=== PATIENT | male | born 1970 | race Caucasian/White ===

== ENCOUNTER 2018-11-04 09:16 | Inpatient (IN) | payer OTHER ==
[2018-10-27 16:11] LABS: BASOPHILS % (AUTO) 0.5 % (0-1); EOSINOPHILS # (AUTO) 0.2 X10'3 (0-0.9); EOSINOPHILS % (AUTO) 2.6 % (0-6); LYMPHOCYTES # (AUTO) 1.6 X10'3 (1.1-4.8); LYMPHOCYTES % (AUTO) 27.5 % (21-51); MEAN CORPUSCULAR HEMOGLOBIN 30.5 PG (27.0-31.0); MEAN CORPUSCULAR HGB CONC 34.1 % (33.0-36.5); MEAN CORPUSCULAR VOLUME 89.5 FL (78-98); MEAN PLATELET VOLUME 8.4 FL (7.4-10.4); MONOCYTES # (AUTO) 0.7 X10'3 (0-0.9); MONOCYTES % (AUTO) 11.2 % (2-12); NEUTROPHILS # (AUTO) 3.4 X10'3 (1.8-7.7); NEUTROPHILS % (AUTO) 58.2 % (42-75); PRE OP HEMATOCRIT 46.4 % (42.0-52.0); PRE OP HEMOGLOBIN 15.8 g/dL (14.0-17.9); PRE OP PLATELET COUNT 155 X10'3 (140-440); RED BLOOD COUNT 5.18 X10'6 (4.70-6.10); RED CELL DISTRIBUTION WIDTH 13.6 % (11.5-14.5)
[2018-10-27 16:24] LABS: ALBUMIN 3.9 G/DL (3.4-5.0); ALKALINE PHOSPHATASE 72 IU/L (46-116); BLOOD UREA NITROGEN 8 MG/DL (7-18); BUN/CREATININE RATIO 8.1 (5.4-32.0); CALCIUM 9.1 MG/DL (8.5-10.1); CHLORIDE 103 MMOL/L (99-107); CREATININE 0.99 MG/DL (0.60-1.10); PRE OP ALT 30 U/L (30-65); PRE OP ANION GAP 8 (8-16); PRE OP AST 19 U/L (10-37); PRE OP BILIRUB, TOTAL 0.5 MG/DL (0.0-1.0); PRE OP GLUCOSE 88 MG/DL (70-104); PRE OP SODIUM 142 MMOL/L (135-145); TOTAL PROTEIN 7.7 G/DL (6.4-8.2); eGFR 80 ML/MIN
[~2018-11-04] VITALS: Ht 172.7 cm; Wt 76.4 kg
[2018-11-04] VITALS (17 sets, daily range): BP systolic 89–140; BP diastolic 52–94
[~2018-11-04 09:16] MED LIST: MELA3TAB PO; acetaminophen 325mg tablet PO ONE; cefazolin/dext.iso 2gm/100 ML IV ONE; famotidine 20mg tablet PO ONE; gabapentin 300mg capsule PO ONE; metoclopramide 5 mg/ml inj IV ONE; oxyCODONE SR 10mg (sust. release) tab -2 tabs (20mg) PO ONE; ringers solution, lacted 1,000 ML IV SCH; tranexamic acid inj. 1,000 MG in normal saline 100 ML IV ONE; vancomycin inj 1,500 MG in normal saline 300ml IV soln IV ONE
[2018-11-04] MEDS ORDERED: ringers solution, lacted 1,000 ML IV SCH (09:38)
[2018-11-04] MEDS ORDERED: ondansetron/PF 4mg/2ml inj IV PRN ×2 (09:40→15:20)
[2018-11-04] MEDS ORDERED: meperidine/PF 25mg/ml syringe IV PRN ×3 (09:40)
[2018-11-04] MEDS ORDERED: morphine 4 MG/ML inj SYRINge IV PRN ×2 (09:40)
[2018-11-04] MEDS ORDERED: proCHLORperazine 10 MG/2 ml inj IV PRN (09:40)
[2018-11-04] MEDS ORDERED: vancomycin 1,000mg inj ONE (12:09)
[2018-11-04] MEDS ORDERED: ketorolac trometh. 30mg/ml inj. ONE (12:09)
[2018-11-04] MEDS ORDERED: morphine 10mg/ml inj. ONE (12:09)
[2018-11-04] MEDS ORDERED: epiNEPHrine 1 mg/ml inj ONE (12:09)
[2018-11-04] MEDS ORDERED: ROPIVAcaine 0.5% (5mg/ml) 30ml vial ONE ×2 (12:10→15:00)
[2018-11-04] MEDS ORDERED: ceFAZolin 1000mg inj ONE (12:10)
--- NOTE | 2018-11-04 12:15 | NUR ---
PT C/O ITCHING, AND L ARM ABOVE IV REDDENED. KATELINO TURNED OFF. Addendum: 11/04/18 at 1307 by Ashley Todd RN Amended: Links added.
[2018-11-04] MEDS ORDERED: MIDAZolam 1mg/ml 10ml vial ONE (12:21)
[2018-11-04] MEDS ORDERED: fentaNYL/PF 50MCG/1 ML 2ML syringe ONE (12:21)
[2018-11-04] MEDS ORDERED: tetracaine 1% (10mg/ml) pres. free inj. ONE (12:23)
[2018-11-04] MEDS ORDERED: diphenhydrAMINE 50 mg/ml inj ONE (12:29)
[2018-11-04] MEDS ORDERED: HYDROmorphone inj. 0.5 MG/0.5 ML DISP.SYRIN IV PRN (15:20)
[2018-11-04] MEDS ORDERED: HYDROmorphone 1 mg/ml syringe IV PRN (15:20)
[2018-11-04] MEDS ORDERED: acetaminophen 325mg tablet PO PRN (15:20)
[2018-11-04] MEDS ORDERED: oxyCODONE IR 5mg (immed. release) tablet PO PRN ×2 (15:20)
[2018-11-04] MEDS ORDERED: bisacodyl 10mg suppository rectal RC PRN (15:20)
[2018-11-04] MEDS ORDERED: magnesium hydroxide 30ml (MOM) UD suspension PO PRN (15:20)
[2018-11-04] MEDS ORDERED: diphenhydrAMINE 25mg capsule PO PRN ×2 (15:20)
--- NOTE | 2018-11-04 15:57 | NUR ---
Received from OR via ORTHO BED WITH JIGAR , accompanied by Anesthesiologist AZALIA and report given by Anesthesiolgist. PATIENT WITH 18G PIV IN LEFT UE RUNNING LR AT 100. DENIES PAIN AT THIS TIME. SPINAL LEVEL AT T10 AT THIS TIME. + DORSALIS PEDIS TO LEFT FOOT. LEFT KNEE WRAP, POWDER PACK, OMAIRA DRAIN PRESENT. ON Q DONNED UPON ARRRIVAL. BARROW CATHETER PRESENT WITH YIN URINE IN CATHETER ATRIUM. SCDS DONEED WAS LUNA DIEZ FOR TEMP OF 35'9C. STEFANIA BRACE DONNED BY [employer] DON IN RR. Addendum: 11/04/18 at 1611 by Gael Castillo RN, RN Amended: Links added.
[2018-11-04] MEDS: ROPIVAcaine 0.2%/PF PAIN PUMP 550 ML IJ SCH (16:12)
--- NOTE | 2018-11-04 16:44 | NUR ---
Patient in room PAS IN 900. I have received report from Gael HACKETT and had the opportunity to ask questions and assume patient care.
--- NOTE | 2018-11-04 17:07 | NUR ---
Report called to receiving nurse. Transferred via ORTHO BED WITH OHFT AND 3 BAGS OF Belongings with a labeled fww. Special Issues communicated to receiving nurse JERONIMO HACKETT.VSS. BED LOW. CALL LIGHT IN HAND AND RN PRESENT IN ROOM TO ACCEPT CARE. DENIES PAIN. CLEAR YELLOW URINE IN CATHETER AT THIS TIME. PATIENT CARE TURNED OVER. Addendum: 11/04/18 at 1723 by Gael Castillo RN RN Amended: Links added.
--- NOTE | 2018-11-04 18:28 | NUR ---
Problems reprioritized. Patient report given, questions answered & plan of care reviewed with Krystle HACKETT.
[2018-11-04] MEDS ORDERED: NORMAL SALINE IV ONE (19:00)
[2018-11-04] MEDS ORDERED: TRANEXAMIC ACID IV ONE (19:00)
[2018-11-04] MEDS: ceFAZolin 1GM/D5W- ADD-VANTAGE 50 ML IV SCH (19:01)
[2018-11-04] MEDS ORDERED: vancomycin/NS 1 GM ADD-VANTAGE 250 ML IV SCH (20:00)
[2018-11-04] MEDS: gabapentin 300mg capsule PO SCH (21:33)
[2018-11-04] MEDS: acetaminophen 325mg tablet PO SCH (21:33)
[2018-11-04] MEDS: sennosides 8.6mg tablet PO SCH (21:34)
[2018-11-04] MEDS: potassium cl 20mEq in 1/2 NS 1,000 ML IV SCH ×2 (22:00→23:19)
[2018-11-05] VITALS (8 sets, daily range): BP systolic 104–140; BP diastolic 62–83
[2018-11-05] MEDS: ceFAZolin 1GM/D5W- ADD-VANTAGE 50 ML IV SCH (02:07)
[2018-11-05] MEDS: acetaminophen 325mg tablet PO SCH ×4 (02:07→19:30)
--- NOTE | 2018-11-05 06:00 | NUR ---
Patient in room ORTHO 4018. I have received report from Krystle HACKETT and had the opportunity to ask questions and assume patient care.
[2018-11-05 06:40] LABS: BASOPHILS % (AUTO) 0 % (0-1); EOSINOPHILS % (AUTO) 0 % (0-6); HEMATOCRIT 35.7 % (42.0-52.0); HEMOGLOBIN 12.1 g/dl (14.0-17.9); LYMPHOCYTES # (AUTO) 0.6 X10'3 (1.1-4.8); MEAN CORPUSCULAR HEMOGLOBIN 30.5 PG (27.0-31.0); MEAN CORPUSCULAR VOLUME 89.6 FL (78-98); MEAN PLATELET VOLUME 8.6 FL (7.4-10.4); MONOCYTES # (AUTO) 0.7 X10'3 (0-0.9); MONOCYTES % (AUTO) 6.8 % (2-12); NEUTROPHILS # (AUTO) 8.4 X10'3 (1.8-7.7); NEUTROPHILS % (AUTO) 87.2 % (42-75); PLATELET COUNT 120 X10'3 (140-440); RED BLOOD COUNT 3.98 X10'6 (4.70-6.10); RED CELL DISTRIBUTION WIDTH 13.6 % (11.5-14.5); WHITE BLOOD COUNT 9.6 X10'3 (4.5-11.0)
[2018-11-05 07:01] LABS: ANION GAP 8 (8-16); CHLORIDE 106 MMOL/L (99-107); SODIUM 138 MMOL/L (135-145); TOTAL CARBON DIOXIDE 24.2 MMOL/L (24-32)
[2018-11-05] MEDS: gabapentin 300mg capsule PO SCH ×3 (08:00→20:56)
[2018-11-05] MEDS: enoxaparin 40mg/0.4ml syringe SQ SCH (08:01)
[2018-11-05] MEDS: potassium cl 20mEq in 1/2 NS 1,000 ML IV SCH ×2 (08:01→15:19)
--- NOTE | 2018-11-05 11:22 | NUR ---
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 Pt seen by YURY for written/verbal high protein ed. RD reviewed high protein needs for wound healing, immune strength, high protein foods, and protein supplementation options. RD contact information provided in case of further questions. COTTON FARMER agrees to adding MVI for wound healing. Pt reports PO 100% meals and agrees to double meats/eggs and argentine yogurt w/ granola w/ meals; YURY d/w dietary. [facility] 11/03 on senna. Will continue to monitor for additional protein/ONS needs. Rec: 1. continue regular diet; double meats/eggs; honor pt food preferences 2. MVI for wound healing needs 3. monitor for additional ONS needs 4. wt per rx Addendum: 11/05/18 at [address] Amended: Links added.
--- NOTE | 2018-11-05 18:05 | NUR ---
Problems reprioritized. Patient report given, questions answered & plan of care reviewed with Sofia HACKETT.
--- NOTE | 2018-11-05 18:24 | NUR ---
Patient in room ORTHO 4018. I have received report from Verónica HACKETT and had the opportunity to ask questions and assume patient care.
[2018-11-05] MEDS: celeCOXIB 100mg capsule PO SCH (19:29)
[2018-11-05] MEDS: sennosides 8.6mg tablet PO SCH (20:57)
[2018-11-05] MEDS: Melatonin 3mg tablet PO PRN (23:00)
--- NOTE | 2018-11-05 23:06 | NUR ---
Patient complaining of increased pain 03/22. Turned ON-Q pump up per orders to 10ml/hr.
[2018-11-06] MEDS: acetaminophen 325mg tablet PO SCH ×3 (02:00→13:32)
[2018-11-06 06:00] VITALS: BP 103/62
--- NOTE | 2018-11-06 06:00 | NUR ---
Patient in room ORTHO 4018. I have received report from Sofia HACKETT and had the opportunity to ask questions and assume patient care.
--- NOTE | 2018-11-06 06:10 | NUR ---
Problems reprioritized. Patient report given, questions answered & plan of care reviewed with Verónica HACKETT.
[2018-11-06 06:55] LABS: BASOPHILS % (AUTO) 0.4 % (0-1); EOSINOPHILS # (AUTO) 0.1 X10'3 (0-0.9); EOSINOPHILS % (AUTO) 1.4 % (0-6); HEMATOCRIT 32.6 % (42.0-52.0); HEMOGLOBIN 11.2 g/dl (14.0-17.9); LYMPHOCYTES # (AUTO) 1.8 X10'3 (1.1-4.8); LYMPHOCYTES % (AUTO) 19.5 % (21-51); MEAN CORPUSCULAR HEMOGLOBIN 30.6 PG (27.0-31.0); MEAN CORPUSCULAR HGB CONC 34.2 % (33.0-36.5); MEAN CORPUSCULAR VOLUME 89.5 FL (78-98); MEAN PLATELET VOLUME 8.2 FL (7.4-10.4); MONOCYTES % (AUTO) 11.2 % (2-12); NEUTROPHILS # (AUTO) 6.2 X10'3 (1.8-7.7); NEUTROPHILS % (AUTO) 67.5 % (42-75); PLATELET COUNT 118 X10'3 (140-440); RED BLOOD COUNT 3.64 X10'6 (4.70-6.10); RED CELL DISTRIBUTION WIDTH 14.1 % (11.5-14.5); WHITE BLOOD COUNT 9.2 X10'3 (4.5-11.0)
[2018-11-06] MEDS: gabapentin 300mg capsule PO SCH ×3 (08:05→20:21)
[2018-11-06] MEDS: celeCOXIB 100mg capsule PO SCH ×2 (08:06→20:21)
[2018-11-06] MEDS: multivitamins, therapeutics tablet PO SCH (08:06)
[2018-11-06] MEDS: enoxaparin 40mg/0.4ml syringe SQ SCH (08:08)
--- NOTE | 2018-11-06 08:30 | NUR ---
ON-Q pump rate increased from 8ml/hr to10 ml/hr due to increased pain of 6 out of 10.
[2018-11-06 10:00] VITALS: BP 142/87
[2018-11-06] MEDS: ROPIVAcaine 0.2%/PF PAIN PUMP 550 ML IJ SCH (14:13)
[2018-11-06] MEDS ORDERED: acetaminophen 325mg tablet PO PRN (15:20)
--- NOTE | 2018-11-06 17:21 | NUR ---
Per Dr. Garcia, patient is to go home with On-Q pump and it is to be refilled by pharmacy here before patient is discharged.
[2018-11-06 18:00] VITALS: BP 119/75
--- NOTE | 2018-11-06 18:00 | NUR ---
Problems reprioritized. Patient report given, questions answered & plan of care reviewed with Sofia HACKETT.
--- NOTE | 2018-11-06 18:29 | NUR ---
Patient in room ORTHO 4018. I have received report from Verónica HACKETT and had the opportunity to ask questions and assume patient care.
--- NOTE | 2018-11-06 20:15 | NUR ---
While assess ON-Q pump the rate is set at 6ml/hr. Was told in report it was set at 10ml/hr. Patient is turning the pump down saying he's not in pain.
[2018-11-06] MEDS: sennosides 8.6mg tablet PO SCH (20:21)
[2018-11-06 22:00] VITALS: BP 118/73
[2018-11-06] MEDS: Melatonin 3mg tablet PO PRN (23:35)
[2018-11-07 06:00] VITALS: BP 122/72
--- NOTE | 2018-11-07 06:11 | NUR ---
Problems reprioritized. Patient report given, questions answered & plan of care reviewed with Jasper HACKETT.
[2018-11-07 06:40] LABS: BASOPHILS % (AUTO) 0.3 % (0-1); EOSINOPHILS # (AUTO) 0.2 X10'3 (0-0.9); EOSINOPHILS % (AUTO) 3.2 % (0-6); HEMATOCRIT 29.2 % (42.0-52.0); HEMOGLOBIN 10.1 g/dl (14.0-17.9); LYMPHOCYTES # (AUTO) 1.2 X10'3 (1.1-4.8); LYMPHOCYTES % (AUTO) 18.7 % (21-51); MEAN CORPUSCULAR HEMOGLOBIN 31.1 PG (27.0-31.0); MEAN CORPUSCULAR HGB CONC 34.7 % (33.0-36.5); MEAN CORPUSCULAR VOLUME 89.7 FL (78-98); MEAN PLATELET VOLUME 8.5 FL (7.4-10.4); MONOCYTES # (AUTO) 0.6 X10'3 (0-0.9); MONOCYTES % (AUTO) 9.1 % (2-12); NEUTROPHILS # (AUTO) 4.5 X10'3 (1.8-7.7); NEUTROPHILS % (AUTO) 68.7 % (42-75); PLATELET COUNT 110 X10'3 (140-440); RED BLOOD COUNT 3.26 X10'6 (4.70-6.10); RED CELL DISTRIBUTION WIDTH 14.7 % (11.5-14.5); WHITE BLOOD COUNT 6.6 X10'3 (4.5-11.0)
[2018-11-07] MEDS: gabapentin 300mg capsule PO SCH ×2 (08:29→13:42)
[2018-11-07] MEDS: enoxaparin 40mg/0.4ml syringe SQ SCH (08:29)
[2018-11-07] MEDS: celeCOXIB 100mg capsule PO SCH (08:29)
[2018-11-07] MEDS: multivitamins, therapeutics tablet PO SCH (08:29)
[2018-11-07] MEDS ORDERED: mag hydrox/Alum hydrox/simeth 30ml oral suspension PO PRN (09:20)
[2018-11-07 10:00] VITALS: BP 115/74
[2018-11-07] MEDS: ROPIVAcaine 0.2%/PF PAIN PUMP 550 ML IJ SCH (13:55)
== END 2018-11-07 14:45 | disposition home or self-care (01) | DRG 488 ==
LOC: EEVIPCON 09:16 → PAS IN 09:16 → EDSTATUS 12:00 → EEVIPCON 14:30 → ORTHO 4S 17:15
PROVIDERS: ADMIT Orthopaedic Surgery; ATTEND Orthopaedic Surgery
PROC: 0SBD0ZZ Excision of Left Knee Joint, Open Approach (ICD-10-PCS; 2018-11-04)
PROC: 8E0Y0CZ Robotic Assisted Procedure of Lower Extremity, Open Approach (ICD-10-PCS; 2018-11-04)
PROC: 0SND0ZZ Release Left Knee Joint, Open Approach (ICD-10-PCS; 2018-11-04)
PROC: 3E0T3BZ Introduction of Anesthetic Agent into Peripheral Nerves and Plexi, Percutaneous Approach (ICD-10-PCS; 2018-11-04)
PROC: 0SRD0EZ Replacement of Left Knee Joint with Articulating Spacer, Open Approach (ICD-10-PCS; principal; 2018-11-04 12:10)
DX: M17.32 Unilateral post-traumatic osteoarthritis, left knee (principal); D62 Acute posthemorrhagic anemia; M24.662 Ankylosis, left knee; M00.9 Pyogenic arthritis, unspecified
CPT/HCPCS: 36415; 80051; 80053; 82948; 85025; 87070; 87075; 87102; 93005; 97110; 97116; 97161; A6455; A7000; A9272; C1713; C1758; G0378; J0171; J0690; J1200; J1650; J1885; J2250; J2270; J2765; J2795; J3010; J3370; J7030; J7120; L1832

== ENCOUNTER 2018-12-23 07:40 | Inpatient (IN) | payer OTHER ==
[~2018-12-23] VITALS: Ht 172.7 cm; Wt 81.6 kg
[2018-12-23] VITALS (18 sets, daily range): BP systolic 101–144; BP diastolic 60–92
[~2018-12-23 07:40] MED LIST changes: -cefazolin/dext.iso 2gm/100 ML IV ONE; +cefazolin/dext.iso 2gm/100ml 100 ML IV ONE; -ringers solution, lacted 1,000 ML IV SCH
[2018-12-23] MEDS: ringers solution, lacted 1,000 ML IV SCH (08:26)
[2018-12-23] MEDS ORDERED: vancomycin 1,000mg inj ONE (09:14)
[2018-12-23] MEDS ORDERED: ceFAZolin 1000mg inj ONE (09:14)
[2018-12-23 09:15] LABS: BASOPHILS % (AUTO) 0.9 % (0-1); EOSINOPHILS # (AUTO) 0.3 X10'3 (0-0.9); LYMPHOCYTES # (AUTO) 1.3 X10'3 (1.1-4.8); LYMPHOCYTES % (AUTO) 26.3 % (21-51); MEAN CORPUSCULAR HEMOGLOBIN 30.4 PG (27.0-31.0); MEAN CORPUSCULAR HGB CONC 33.7 g/dL (33.0-36.5); MEAN CORPUSCULAR VOLUME 90.4 FL (78-98); MONOCYTES # (AUTO) 0.4 X10'3 (0-0.9); NEUTROPHILS # (AUTO) 2.8 X10'3 (1.8-7.7); NEUTROPHILS % (AUTO) 57.8 % (42-75); PRE OP HEMATOCRIT 43.9 % (42.0-52.0); PRE OP HEMOGLOBIN 14.8 g/dL (14.0-17.9); PRE OP PLATELET COUNT 154 X10'3 (140-440); RED BLOOD COUNT 4.86 X10'6 (4.70-6.10); RED CELL DISTRIBUTION WIDTH 14.7 % (11.5-14.5)
[2018-12-23 09:27] LABS: ALBUMIN 3.8 G/DL (3.4-5.0); ALKALINE PHOSPHATASE 79 IU/L (46-116); BLOOD UREA NITROGEN 11 MG/DL (7-18); BUN/CREATININE RATIO 11.6 (5.4-32.0); CHLORIDE 104 MMOL/L (99-107); CREATININE 0.95 MG/DL (0.60-1.10); PRE OP ALT 31 U/L (30-65); PRE OP ANION GAP 10 (8-16); PRE OP AST 23 U/L (10-37); PRE OP BILIRUB, TOTAL 0.4 MG/DL (0.0-1.0); PRE OP GLUCOSE 94 MG/DL (70-104); PRE OP POTASSIUM 3.5 MMOL/L (3.4-5.1); PRE OP SODIUM 139 MMOL/L (135-145); TOTAL CARBON DIOXIDE 25.4 MMOL/L (24-32); TOTAL PROTEIN 7.5 G/DL (6.4-8.2); eGFR 84 ML/MIN
[2018-12-23] MEDS ORDERED: MIDAZolam 1mg/ml 10ml vial ONE (10:18)
[2018-12-23] MEDS ORDERED: fentaNYL/PF 50MCG/1 ML 2ML syringe ONE (10:19)
[2018-12-23] MEDS ORDERED: diphenhydrAMINE 50 mg/ml inj ONE (10:39)
[2018-12-23] MEDS ORDERED: ROPIVACAINE IU ONE ×5 (11:05)
[2018-12-23] MEDS ORDERED: [UNRECOGNIZED DRUG - OTHER] IU ONE ×5 (11:05)
[2018-12-23] MEDS ORDERED: KETOROLAC TROMETH IU ONE ×5 (11:05)
[2018-12-23] MEDS ORDERED: EPINEPHRINE IU ONE ×5 (11:05)
[2018-12-23] MEDS ORDERED: ondansetron/PF 4mg/2ml inj IV PRN ×2 (12:00→14:05)
[2018-12-23] MEDS ORDERED: proCHLORperazine 10 MG/2 ml inj IV PRN (12:00)
[2018-12-23] MEDS ORDERED: meperidine/PF 25mg/ml syringe IV PRN ×3 (12:00)
[2018-12-23] MEDS ORDERED: morphine 4 MG/ML inj SYRINge IV PRN ×2 (12:00)
[2018-12-23] MEDS ORDERED: ringers solution, lacted 1,000 ML IV SCH (12:00)
[2018-12-23] MEDS ORDERED: acetaminophen 325mg tablet PO PRN (14:05)
[2018-12-23] MEDS ORDERED: magnesium hydroxide 30ml (MOM) UD suspension PO PRN (14:05)
[2018-12-23] MEDS ORDERED: oxyCODONE IR 5mg (immed. release) tablet PO PRN ×2 (14:05)
[2018-12-23] MEDS ORDERED: HYDROmorphone 1 mg/ml syringe IV PRN (14:05)
[2018-12-23] MEDS ORDERED: HYDROmorphone inj. 0.5 MG/0.5 ML DISP.SYRIN IV PRN (14:05)
[2018-12-23] MEDS ORDERED: bisacodyl 10mg suppository rectal RC PRN (14:05)
[2018-12-23] MEDS ORDERED: diphenhydrAMINE 25mg capsule PO PRN ×2 (14:05)
[2018-12-23] MEDS ORDERED: ROPIVAcaine 0.5% (5mg/ml) 30ml vial ONE (14:57)
--- NOTE | 2018-12-23 14:59 | NUR ---
Received from OR via ORTHO BED WITH NCEYAL , accompanied by Anesthesiologist AZALIA and report given by Anesthesiolgist. PATIENT WITH LEFT KNEE WRAP. POWDER PACK . OMAIRA DRAIN, + DORSALIS PEDIS. SCDS, O2 AT 3 NASAL CANNULA WITH 100% SATURATIONS. Addendum: 12/23/18 at 1537 by Gael Castillo RN, RN Amended: Links added.
[2018-12-23] MEDS: ROPIVAcaine 0.2%/PF PAIN PUMP 550 ML IJ SCH ×2 (15:06→15:07)
--- NOTE | 2018-12-23 16:09 | NUR ---
ALL CRITERIA FOR TRANSFER TO THE FLOOR HAS BEEN ACHIEVED. VSS. BED LOW, CALL LIGHT AND VS. SET IN PLACE. RN PRESENT TO ACCEPT CARE. PATIENT RESTING COMFORTABLY IN BED. BELONGINGS SENT WITH PATIENT. DRESSINGS CDI. LEW PALMER PRESENT TO ACCEPT CARE. ALL QUESTIONS ANSWERED. IV INTACT IS BARROW CATHETER. DRESSING TO LEFT KNEE IS CDI. NO DRAINAGE. + DP PRESENT. Addendum: 12/23/18 at 1624 by Gael Brennan - LEW HACKETT Amended: Links added.
[2018-12-23] MEDS: ceFAZolin 1GM/D5W- ADD-VANTAGE 50 ML IV SCH ×2 (16:32→23:43)
--- NOTE | 2018-12-23 16:53 | NUR ---
Student documentation: I have reviewed and agree with all interventions, assessments performed and documented by []. Student Medication Administration: For this medication-pass time frame, all medication were reviewed, dispensed, administered and documented per hospital policy by SN Janice .
[2018-12-23] MEDS ORDERED: tranexamic acid inj. 800 MG in normal saline 100ml IV soln 100 ML IV ONE (17:00)
--- NOTE | 2018-12-23 18:30 | NUR ---
Patient in room ORTHO 4009. I have received report from LEW HILL and had the opportunity to ask questions and assume patient care.
[2018-12-23] MEDS ORDERED: vancomycin/NS 1 GM ADD-VANTAGE 250 ML IV SCH (20:00)
[2018-12-23] MEDS: potassium cl 20mEq in 1/2 NS 1,000 ML IV SCH ×2 (20:50→22:01)
[2018-12-23] MEDS: acetaminophen 325mg tablet PO SCH (20:51)
[2018-12-23] MEDS: gabapentin 300mg capsule PO SCH (20:51)
[2018-12-23] MEDS: sennosides 8.6mg tablet PO SCH (20:52)
[2018-12-24] VITALS (7 sets, daily range): BP systolic 120–135; BP diastolic 69–95
[2018-12-24] MEDS: acetaminophen 325mg tablet PO SCH ×4 (02:00→19:59)
--- NOTE | 2018-12-24 06:21 | NUR ---
Problems reprioritized. Patient report given, questions answered & plan of care reviewed with padmini díaz.
--- NOTE | 2018-12-24 06:23 | NUR ---
Patient in room ORTHO 4009. I have received report from Slime HACKETT and had the opportunity to ask questions and assume patient care.
[2018-12-24 06:30] LABS: BASOPHILS % (AUTO) 0.1 % (0-1); EOSINOPHILS % (AUTO) 0.1 % (0-6); HEMATOCRIT 26.1 % (42.0-52.0); LYMPHOCYTES # (AUTO) 0.6 X10'3 (1.1-4.8); LYMPHOCYTES % (AUTO) 6.6 % (21-51); MEAN CORPUSCULAR HEMOGLOBIN 31.2 PG (27.0-31.0); MEAN CORPUSCULAR HGB CONC 34.3 g/dL (33.0-36.5); MEAN PLATELET VOLUME 8.7 FL (7.4-10.4); MONOCYTES # (AUTO) 0.7 X10'3 (0-0.9); MONOCYTES % (AUTO) 7.8 % (2-12); NEUTROPHILS # (AUTO) 7.2 X10'3 (1.8-7.7); NEUTROPHILS % (AUTO) 85.4 % (42-75); PLATELET COUNT 134 X10'3 (140-440); RED BLOOD COUNT 2.87 X10'6 (4.70-6.10); RED CELL DISTRIBUTION WIDTH 14.3 % (11.5-14.5); WHITE BLOOD COUNT 8.4 X10'3 (4.5-11.0)
[2018-12-24 06:42] LABS: ANION GAP 5 (8-16); CHLORIDE 108 MMOL/L (99-107); POTASSIUM 4.1 MMOL/L (3.5-5.1); SODIUM 139 MMOL/L (135-145); TOTAL CARBON DIOXIDE 25.7 MMOL/L (24-32)
[2018-12-24] MEDS: ringers solution, lacted 1,000 ML IV SCH (06:59)
[2018-12-24] MEDS: potassium cl 20mEq in 1/2 NS 1,000 ML IV SCH ×3 (07:11→21:11)
[2018-12-24] MEDS: gabapentin 300mg capsule PO SCH ×3 (07:18→19:59)
[2018-12-24] MEDS: enoxaparin 40mg/0.4ml syringe SQ SCH (07:21)
--- NOTE | 2018-12-24 13:01 | NUR ---
Joint consult: Pt s/p surgery to knee seen at bedside given written and verbal high protein education. Pt with no questions at this time, RD contact information provided. Pt on regular diet with no documented PO intake however pt endorses a good appetite. Pt agreeable to double protein TID and requests chocolate Ensure High Protein at breakfast, MD dupree, d/w dietary. Will continue to follow. Addendum: 12/24/18 at [address] Amended: Links added.
--- NOTE | 2018-12-24 18:17 | NUR ---
Problems reprioritized. Patient report given, questions answered & plan of care reviewed with Debi Tovar RN.
--- NOTE | 2018-12-24 18:30 | NUR ---
Patient in room ORTHO 4009. I have received report from LEW Leavitt and had the opportunity to ask questions and assume patient care.
[2018-12-24] MEDS: celeCOXIB 100mg capsule PO SCH (19:59)
[2018-12-24] MEDS: sennosides 8.6mg tablet PO SCH (20:00)
--- NOTE | 2018-12-24 20:00 | NUR ---
offered to place CPM, patient stated that he had had it on for 2 hours last time, so he did not want to use it tonight. C/o 04/21 muscle pain.
[2018-12-25] VITALS (8 sets, daily range): BP systolic 109–127; BP diastolic 45–85
[2018-12-25] MEDS: acetaminophen 325mg tablet PO SCH ×3 (02:00→13:32)
[2018-12-25] MEDS: acetaminophen 325mg tablet PO PRN (05:32)
[2018-12-25] MEDS: potassium cl 20mEq in 1/2 NS 1,000 ML IV SCH (06:01)
--- NOTE | 2018-12-25 06:11 | NUR ---
Problems reprioritized. Patient report given, questions answered & plan of care reviewed with LEW Flood.
--- NOTE | 2018-12-25 06:15 | NUR ---
Patient in room ORTHO 4009. I have received report from BAL HACKETT and had the opportunity to ask questions and assume patient care.
[2018-12-25] MEDS: lactose-reduced food (Ensure High Protein) 237ml bottle PO SCH (07:30)
[2018-12-25] MEDS: celeCOXIB 100mg capsule PO SCH ×2 (07:48→20:08)
[2018-12-25] MEDS: gabapentin 300mg capsule PO SCH ×3 (07:48→20:09)
[2018-12-25] MEDS: enoxaparin 40mg/0.4ml syringe SQ SCH (07:49)
[2018-12-25 07:54] LABS: BASOPHILS % (AUTO) 0.4 % (0-1); EOSINOPHILS # (AUTO) 0.2 X10'3 (0-0.9); EOSINOPHILS % (AUTO) 3.2 % (0-6); HEMOGLOBIN 7.3 g/dl (14.0-17.9); LYMPHOCYTES # (AUTO) 1.2 X10'3 (1.1-4.8); LYMPHOCYTES % (AUTO) 20.7 % (21-51); MEAN CORPUSCULAR HEMOGLOBIN 31.1 PG (27.0-31.0); MEAN CORPUSCULAR HGB CONC 33.6 g/dL (33.0-36.5); MEAN CORPUSCULAR VOLUME 92.5 FL (78-98); MEAN PLATELET VOLUME 8.7 FL (7.4-10.4); MONOCYTES # (AUTO) 0.7 X10'3 (0-0.9); MONOCYTES % (AUTO) 11.9 % (2-12); NEUTROPHILS # (AUTO) 3.7 X10'3 (1.8-7.7); NEUTROPHILS % (AUTO) 63.8 % (42-75); PLATELET COUNT 109 X10'3 (140-440); RED BLOOD COUNT 2.34 X10'6 (4.70-6.10); RED CELL DISTRIBUTION WIDTH 14.8 % (11.5-14.5); WHITE BLOOD COUNT 5.8 X10'3 (4.5-11.0)
[2018-12-25 08:09] LABS: HEMATOCRIT 21.7 % (42.0-52.0)
[2018-12-25] MEDS ORDERED: ENOX40DI11 SQ (10:23)
[2018-12-25] MEDS: ROPIVAcaine 0.2%/PF PAIN PUMP 550 ML IJ SCH (12:48)
[2018-12-25 18:28] LABS: HEMATOCRIT 24.5 % (42.0-52.0); HEMOGLOBIN 8.6 g/dl (14.0-17.9); MEAN CORPUSCULAR HEMOGLOBIN 32.5 PG (27.0-31.0); MEAN CORPUSCULAR HGB CONC 35.2 g/dL (33.0-36.5); MEAN CORPUSCULAR VOLUME 92.5 FL (78-98); MEAN PLATELET VOLUME 8.5 FL (7.4-10.4); PLATELET COUNT 112 X10'3 (140-440); RED BLOOD COUNT 2.65 X10'6 (4.70-6.10); RED CELL DISTRIBUTION WIDTH 14.6 % (11.5-14.5); WHITE BLOOD COUNT 4.9 X10'3 (4.5-11.0)
[2018-12-25] MEDS: sennosides 8.6mg tablet PO SCH (20:51)
--- NOTE | 2018-12-26 01:06 | NUR ---
reviewed and agree with SRN assessment
[2018-12-26 06:00] VITALS: BP 127/72
--- NOTE | 2018-12-26 06:08 | NUR ---
Problems reprioritized. Patient report given, questions answered & plan of care reviewed with LEW Flood.
--- NOTE | 2018-12-26 06:12 | NUR ---
Patient in room ORTHO 4009. I have received report from BAL HACKETT AND ALEXANDRA and had the opportunity to ask questions and assume patient care.
[2018-12-26] MEDS: enoxaparin 40mg/0.4ml syringe SQ SCH (07:11)
[2018-12-26] MEDS: gabapentin 300mg capsule PO SCH (07:11)
[2018-12-26] MEDS: celeCOXIB 100mg capsule PO SCH (07:11)
[2018-12-26] MEDS: acetaminophen 325mg tablet PO PRN (07:12)
[2018-12-26] MEDS: lactose-reduced food (Ensure High Protein) 237ml bottle PO SCH (07:30)
[2018-12-26 09:13] LABS: BASOPHILS % (AUTO) 0.5 % (0-1); EOSINOPHILS # (AUTO) 0.2 X10'3 (0-0.9); EOSINOPHILS % (AUTO) 3.7 % (0-6); HEMATOCRIT 26.3 % (42.0-52.0); LYMPHOCYTES # (AUTO) 0.9 X10'3 (1.1-4.8); LYMPHOCYTES % (AUTO) 15.2 % (21-51); MEAN CORPUSCULAR HEMOGLOBIN 31.6 PG (27.0-31.0); MEAN CORPUSCULAR HGB CONC 34.2 g/dL (33.0-36.5); MEAN CORPUSCULAR VOLUME 92.3 FL (78-98); MEAN PLATELET VOLUME 8.4 FL (7.4-10.4); MONOCYTES # (AUTO) 0.5 X10'3 (0-0.9); NEUTROPHILS # (AUTO) 4.5 X10'3 (1.8-7.7); NEUTROPHILS % (AUTO) 72.6 % (42-75); PLATELET COUNT 126 X10'3 (140-440); RED BLOOD COUNT 2.84 X10'6 (4.70-6.10); RED CELL DISTRIBUTION WIDTH 14.6 % (11.5-14.5); WHITE BLOOD COUNT 6.2 X10'3 (4.5-11.0)
--- NOTE | 2018-12-26 10:30 | NUR ---
PATIENT DC HOME SAFELY WITH FRIEND. ON-Q PUMP SENT HOME WITH PATIENT AND INSTRUCTIONS ON HOW TO REMOVE. PATIENT ACKNOWLEDGES UNDERSTANDING OF ALL DC INSTRUCTIONS.
== END 2018-12-26 10:30 | disposition home health service (06) | DRG 467 ==
LOC: PRE-OP 07:40 → ORTHO 4S 14:01
PROVIDERS: ADMIT Orthopaedic Surgery; ATTEND Orthopaedic Surgery
PROC: 0SRD069 Replacement of Left Knee Joint with Oxidized Zirconium on Polyethylene Synthetic Substitute, Cemented, Open Approach (ICD-10-PCS; 2018-12-23)
PROC: 0SPD0EZ Removal of Articulating Spacer from Left Knee Joint, Open Approach (ICD-10-PCS; 2018-12-23)
PROC: 3E0T3BZ Introduction of Anesthetic Agent into Peripheral Nerves and Plexi, Percutaneous Approach (ICD-10-PCS; 2018-12-23)
PROC: 8E0YXCZ Robotic Assisted Procedure of Lower Extremity (ICD-10-PCS; 2018-12-23)
PROC: 30233N1 Transfusion of Nonautologous Red Blood Cells into Peripheral Vein, Percutaneous Approach (ICD-10-PCS; principal; 2018-12-25)
DX: T84.54XA Infection and inflammatory reaction due to internal left knee prosthesis, initial encounter (principal); D62 Acute posthemorrhagic anemia; Z91.018 Allergy to other foods; Y79.3 Surgical instruments, materials and orthopedic devices (including sutures) associated with adverse incidents; Y92.89 Other specified places as the place of occurrence of the external cause
CPT/HCPCS: 36415; 73560; 80051; 80053; 82948; 85025; 85027; 86885; 86900; 86901; 86920; 97110; 97116; 97161; 97530; A6455; A7000; C1713; C1758; C1776; C9250; G0378; J0171; J0690; J1200; J1650; J1885; J2250; J2270; J2765; J2795; J3010; J3370; J7030; J7120; P9016; Q0163